=== PATIENT | female | born 1955 ===

== ENCOUNTER 2018-11-14 13:37 | Outpatient (CLI) | payer BC ==
--- NOTE | 2018-11-14 15:00 | BD ---
DEXA BONE MINERAL DENSITOMETRY EXAM, DENSITY STUDY: HISTORY: Screening for osteoporosis. FINDINGS: Lumbar Spine: BMD (g/cm2) L1 0.756 T-Score: -2.1 L2 0.779 T-Score: -2.3 L3 0.696 T-Score: -3.5 L4 0.754 T-Score: -2.8 L1-L4 0.745 T-Score: -2.7 Evidence for osteoporosis with high risk for fracture. Left Femur Femoral Neck: 0.598 T-Score: -2.3 Total Femur: 0.702 T-Score: -2.0 Evidence for osteopenia with increased risk for fracture. FRAX score not reported because some T-scores at or below -2.5. POS: C
--- NOTE | 2018-11-17 13:42 | MMO ---
Bilateral MAMMO Bilat Screen [facility]. CLINICAL HISTORY: Patient is 63 years old and is seen for screening. The patient has the following family history of breast cancer: maternal grandmother, LUNG AND METS. The patient has no personal history of cancer. VIEWS: The views performed were: bilateral craniocaudal with tomosynthesis and bilateral mediolateral oblique with tomosynthesis. MAMMOGRAM FINDINGS: There are scattered fibroglandular densities. There are no suspicious masses, calcifications or areas of architectural distortion. IMPRESSION: THERE IS NO MAMMOGRAPHIC EVIDENCE OF MALIGNANCY. A ROUTINE FOLLOW-UP MAMMOGRAM IN 1 YEAR IS RECOMMENDED. THE RESULTS OF THIS EXAM WERE SENT TO THE PATIENT. ACR BI-RADS Category 1 - Negative MAMMOGRAPHY NOTE: 1. A negative mammogram report should not delay a biopsy if a dominant of clinically suspicious mass is present. 2. Approximately 10% to 15% of breast cancers are not detected by mammography. 3. Adenosis and dense breasts may obscure an underlying neoplasm.
== END 2018-11-14 13:38 | disposition home or self-care (01) ==
LOC: BICMAMMO 13:37
PROVIDERS: ATTEND Family Medicine
DX: Z12.31 Encounter for screening mammogram for malignant neoplasm of breast (principal); Z13.820 Encounter for screening for osteoporosis; M81.0 Age-related osteoporosis without current pathological fracture; M85.859 Other specified disorders of bone density and structure, unspecified thigh; Z80.3 Family history of malignant neoplasm of breast
CPT/HCPCS: 77063; 77067; 77080